=== PATIENT | female | born 1965 | race Two or more races ===

== ENCOUNTER 2021-04-18 22:03 | Emergency (ER) | payer BC ==
[2021-04-18 22:14] VITALS: BP 133/79; PULSE 89; TEMP 99.3; BMI 33.6
[2021-04-18] MEDS ORDERED: ALBUTEROL SO4 2.5/IPRATROPIUM 0.5 INH SOL 3 ML VIAL.NEB. NEB ONE ×2 (22:32→22:41)
[2021-04-19] MEDS ORDERED: guaiFENesin/CODEINE 10 ML UNIT-DOSE CUPS PO ONE (01:05)
[2021-04-19] MEDS ORDERED: guaiFENesin/CODEINE 10 ML UNIT-DOSE CUPS ONE (01:07)
== END 2021-04-19 03:06 | disposition home or self-care (01) ==
LOC: FER 22:03
PROC: 3E0F7GC Introduction of Other Therapeutic Substance into Respiratory Tract, Via Natural or Artificial Opening (ICD-10-PCS; principal; 2021-04-18)
DX: R06.02 Shortness of breath (principal)
CPT/HCPCS: 36415; 82550; 84484; 93005; 99284-25

== ENCOUNTER 2021-10-27 12:27 | Emergency (ER) | payer BC ==
[2021-10-27 12:59] VITALS: BP 116/66; PULSE 85; TEMP 98.2; BMI 33.3
[2021-10-30 03:07] LABS: SARS-CoV-2 NAA Detected (Not Detected)
== END 2021-10-27 12:56 | disposition home or self-care (01) ==
LOC: FER 12:27
DX: B34.9 Viral infection, unspecified (principal)
CPT/HCPCS: 99283-25; C9803; U0003; U0005